=== PATIENT | female | born 1950 | race African-American/Black ===

== ENCOUNTER 2022-02-14 19:54 | Inpatient (IN) | payer MEDICARE, BC ==
[~2022-02-14] VITALS: Ht 162.6 cm; Wt 80.7 kg
[2022-02-14 21:11] VITALS: BP 142/85
--- NOTE | 2022-02-15 | NUR ---
Patient pacing on unit going room to room . Alert and confused. On admission she states she lives with her mother 88y/o and two sons 39 and 36 years old and grandchildren than another time they sons are 50 and 35 no grandchildren yet and her father lives in [place]. she never mentions her . When ask about her she says they just got in March.
--- NOTE | 2022-02-15 06:07 | NUR ---
Patient up all night pacing on the unit. Attempt to redirect patient to her room she states: "tough me one more time you'll see." Three staff members accompanied patient to her room close supervision maintained.
--- NOTE | 2022-02-15 06:44 | NUR ---
Patient in [address] very agitated did not sleep all night pacing back and forth. Call out to Dr Pham received order for zyprexa 5mg IM x one dose and Ativan 1mg IM x one dose.
[2022-02-15] MEDS ORDERED: OLANZAPINE 10 MG VIAL IM ONE (06:45)
[2022-02-15] MEDS ORDERED: LORAZEPAM 2 MG/1 ML VIAL IM ONE (06:45)
[2022-02-15 07:30] VITALS: BP 130/81
[2022-02-15] MEDS ORDERED: MAGNESIUM HYDROXIDE 30 ML LIQUID UDC PO PRN (08:15)
[2022-02-15] MEDS ORDERED: LORAZEPAM 1 MG TABLET PO PRN (08:15)
[2022-02-15] MEDS ORDERED: BLOOD SUGAR DIAGNOSTIC 1 EACH STRIP VI ONE (08:15)
[2022-02-15] MEDS ORDERED: ACETAMINOPHEN 325 MG TABLET PO PRN (08:15)
[2022-02-15] MEDS ORDERED: MAG HYDROX/AL HYDROX/SIMETH 30 ML LIQUID UDC PO PRN (08:15)
[2022-02-15] MEDS ORDERED: ZOLPIDEM 5 MG TABLET PO PRN (08:15)
--- NOTE | 2022-02-15 09:00 | NUR ---
Firearms Report: Senior [employer] completed and submitted a [employer] firearms report for 5150 grave disability certifications. A copy of report has been placed in patient chart.
--- NOTE | 2022-02-15 11:58 | NUR ---
DOUG Initial Discharge Note: Pt currently resides at home with her spouse at [address] [place] [address] ([phone]). DOUG called and spoke with pt's spouse, Alexys Tavarez, to discuss treatment plan and discharge plan. DOUG will continue to work [facility] pt, family, and MD to ensure a safe and proper discharge plan.
--- NOTE | 2022-02-15 11:58 | NUR ---
SW Family Contact: SW called and spoke with pt's spouse, Alexys Tavarez, to discuss treatment plan and discharge plan. Pt's spouse provided collateral info (see SW assessment).
[2022-02-15] MEDS ORDERED: ATOR20TA PO (13:24)
[2022-02-15] MEDS ORDERED: AMLO10TA4 PO (13:24)
[2022-02-15] MEDS ORDERED: MONT10TA33 PO (13:27)
[2022-02-15] MEDS ORDERED: ALBU8.5H8 IH (13:39)
[2022-02-15] MEDS ORDERED: POTA10TA48 PO (13:46)
[2022-02-15] MEDS ORDERED: RAME8TAB24 PO (13:47)
[2022-02-15] MEDS ORDERED: VILA10TA PO (13:49)
[2022-02-15] MEDS ORDERED: ALPR2TAB7 PO (13:50)
[2022-02-15] MEDS ORDERED: FLUT1BLS6 IH (14:11)
[2022-02-15] MEDS ORDERED: RISP1TAB97 PO (14:13)
[2022-02-15] MEDS ORDERED: ESCI10TA PO (14:15)
[2022-02-15] MEDS: risperiDONE 1 MG TABLET PO SCH (16:00)
[2022-02-15] MEDS: OXCARBAZEPINE 150 MG TABLET PO SCH (17:13)
[2022-02-15 17:17] VITALS: BP 142/84
--- NOTE | 2022-02-15 18:27 | NUR ---
Patient is confused, intrusive, not following directions, anxious, restless, paces in the hallway. A/O X 2 to person. Reassurance given. Fall and safety precautions implemented.
[2022-02-15 20:00] VITALS: BP 97/69
[2022-02-15] MEDS: CLONAZEPAM 1 MG TABLET PO SCH (20:39)
--- NOTE | 2022-02-16 06:33 | NUR ---
Patient medicated with rafat EUCEDA during shift. Slept fairly for about one hour. She remains in her room during shift no sign of agitation took all scheduled medications without difficultty.
--- NOTE | 2022-02-16 06:52 | NUR ---
Late entry for 02/13/22: Patient is admitted on unit from [facility] with present dx of psychosis. Patient has episode of visual and auditory hallucination and pass medical Hx of HTN and cardiac disorder. Patient is confused, ambulatory, continent of B&B. Respiration easy and regular skin is intact, lungs sounds are clear, no edema, bowel sounds present all four quadrants. Patient oriented to unit.
[2022-02-16 07:34] LABS: MEAN CORPUSCULAR HEMOGLOBIN 30.9 uug (24.7-32.8); MEAN CORPUSCULAR VOLUME 89.1 fL (75.5-95.3); PLATELET COUNT (AUTO) 238 K/uL (179-408)
[2022-02-16 07:53] VITALS: BP 144/94
[2022-02-16 07:59] LABS: BILIRUBIN,TOTAL 1.3 mg/dL (0.2-1.0); CREATININE 1.2 mg/dL (0.6-1.3); POTASSIUM 3.4 mmol/L (3.5-5.1); TOTAL PROTEIN, SERUM 7.8 g/dL (6.4-8.2)
[2022-02-16] MEDS ORDERED: ALBUTEROL SULFATE 2.5 MG/3 ML NEBU NEB PRN (08:45)
[2022-02-16] MEDS: risperiDONE 1 MG TABLET PO SCH ×2 (08:53→16:53)
[2022-02-16] MEDS: OXCARBAZEPINE 150 MG TABLET PO SCH ×2 (08:53→16:53)
[2022-02-16] MEDS: AMLODIPINE 10 MG TABLET PO SCH (08:54)
[2022-02-16] MEDS ORDERED: POTASSIUM CHLORIDE 20 MEQ TAB.PRT.SR PO ONE (10:00)
--- NOTE | 2022-02-16 10:38 | NUR ---
Pt received lying in bed resting comfortably. No aggressive or combative behaviors noted at this time. Admits to hallucinations but does not disclose what. Isolative and withdrawn. Compliant with all medications and care.
[2022-02-16 16:15] VITALS: BP 121/84
[2022-02-16] MEDS: CLONAZEPAM 1 MG TABLET PO SCH (21:00)
[2022-02-16] MEDS: ATORVASTATIN 20 MG TABLET PO SCH (21:00)
[2022-02-16] MEDS: MONTELUKAST SODIUM 10 MG TABLET PO SCH (21:00)
[2022-02-17 07:48] VITALS: BP 118/74
[2022-02-17 08:09] LABS: POTASSIUM 3.5 mmol/L (3.5-5.1)
[2022-02-17] MEDS: OXCARBAZEPINE 150 MG TABLET PO SCH ×2 (08:28→16:39)
[2022-02-17] MEDS: risperiDONE 1 MG TABLET PO SCH ×2 (08:28→16:39)
[2022-02-17] MEDS: AMLODIPINE 10 MG TABLET PO SCH (08:28)
--- NOTE | 2022-02-17 14:13 | NUR ---
Received patient in her room isolative withdrawn no interaction with peers.compliant with all medication. encouraged to attend and participated in group activity.patient is confused and forgetful at time . denies any AH/VH ,will continue close monitoring.
[2022-02-17 16:07] VITALS: BP 109/60
[2022-02-17 19:53] VITALS: BP 119/61
[2022-02-17] MEDS: ATORVASTATIN 20 MG TABLET PO SCH (20:26)
[2022-02-17] MEDS: CLONAZEPAM 1 MG TABLET PO SCH (20:26)
[2022-02-17] MEDS: MONTELUKAST SODIUM 10 MG TABLET PO SCH (20:26)
--- NOTE | 2022-02-17 20:35 | NUR ---
Received patient in her room ion bed. She is noted awake A/O x 3 She is calm and pleasant upon approached. she is able to verbalized her feelings. patient stated, "I am here because I hear voices and i see things but i am getting better". patient denied SI and HI. she is able to verbally CFS. Patient is reassured for her safety. safety and fall precautions are in place. she was given PO fluids and snacks. V/S are stable. will continue to monitor.
[2022-02-18 07:43] VITALS: BP 111/64
[2022-02-18] MEDS: AMLODIPINE 10 MG TABLET PO SCH (08:18)
[2022-02-18] MEDS: OXCARBAZEPINE 150 MG TABLET PO SCH (08:19)
[2022-02-18] MEDS: risperiDONE 1 MG TABLET PO SCH ×2 (08:19→17:20)
[2022-02-18 15:57] VITALS: BP 117/60
[2022-02-18] MEDS: OXCARBAZEPINE 300 MG TABLET PO SCH (17:20)
[2022-02-18 20:00] VITALS: BP 106/55
[2022-02-18] MEDS: MONTELUKAST SODIUM 10 MG TABLET PO SCH (20:25)
[2022-02-18] MEDS: CLONAZEPAM 1 MG TABLET PO SCH (20:25)
[2022-02-18] MEDS: ATORVASTATIN 20 MG TABLET PO SCH (20:25)
--- NOTE | 2022-02-18 21:22 | NUR ---
Received patient in her room in bed. She is noted awake A/O x 3. she is calm, cooperative and pleasant upon approached. She is able to verbalized her feelings.. She continue Isolative in her room. However, she denied SI. she also stated that she is not experiencing any more visual or auditory hallucinations. she stated, "I know now why i has hearing voices. I was taking the wrong medication. I am now taking the right medication and i feel better". Patient is goal oriented but appears to minimized her symptoms. Her V/S are stable. she is i no distress. She was given PO fluids and snacks. SHe is reassured for her safety. safety and fall precautions are in place. will continue to monitor.
[2022-02-19 07:30] VITALS: BP 132/82
[2022-02-19] MEDS: OXCARBAZEPINE 300 MG TABLET PO SCH ×2 (08:27→17:00)
[2022-02-19] MEDS: risperiDONE 1 MG TABLET PO SCH ×2 (08:27→17:00)
[2022-02-19] MEDS: AMLODIPINE 10 MG TABLET PO SCH (08:29)
--- NOTE | 2022-02-19 14:47 | NUR ---
Patient is isolative, withdrawn, cooperative with nursing care, and compliant with medications. Pt. is A/O X 3 to person, place. Pt. is not engaging in group activities or conversations. Reassurance given. Fall and safety precautions implemented.
--- NOTE | 2022-02-19 15:12 | NUR ---
DOUG Discharge Update: DOUG called Dr. Way ([phone]) and spoke with Divya and scheduled follow-up appointment on 03/14/22 at 11:20am at [address] [place] [address], [address], [place] [address]. Divya states she will talk to Dr. Way to reschedule for earlier appt if her schedule permits.
[2022-02-19 16:38] VITALS: BP 104/65
[2022-02-19 19:51] VITALS: BP 122/67
[2022-02-19] MEDS: CLONAZEPAM 1 MG TABLET PO SCH (20:26)
[2022-02-19] MEDS: ATORVASTATIN 20 MG TABLET PO SCH (20:26)
[2022-02-19] MEDS: MONTELUKAST SODIUM 10 MG TABLET PO SCH (20:26)
--- NOTE | 2022-02-20 07:08 | NUR ---
PATIENT SLEPT FOR APPROX 8 HRS THROUGH THE NIGHT. SHE CONTINUE ISOLATIVE AND WITHDRAWN. SHE DENIED SI/HI//AH. WILL CONTINUE TO MONITOR.
[2022-02-20 07:30] VITALS: BP 113/68
[2022-02-20] MEDS: risperiDONE 1 MG TABLET PO SCH ×2 (08:26→17:20)
[2022-02-20] MEDS: AMLODIPINE 10 MG TABLET PO SCH (08:27)
[2022-02-20] MEDS: OXCARBAZEPINE 300 MG TABLET PO SCH ×2 (08:27→17:20)
--- NOTE | 2022-02-20 12:53 | NUR ---
DOUG Family Contact: SW spoke with pt's Alexys Tavarez ([phone]) and provided discharge plan updates. Pt's verbalized understanding and is in agreement with discharge plan.
--- NOTE | 2022-02-20 15:19 | NUR ---
Patient is withdrawn, isolative, not engage in activities or conversations, compliant with medications, cooperative with nursing care. A/O X 3 to person, place. Pt. is encourage to verbalize concerns. Fall and safety precautions implemented.
[2022-02-20 17:06] VITALS: BP 112/73
[2022-02-20 19:50] VITALS: BP 127/85
[2022-02-20] MEDS: CLONAZEPAM 1 MG TABLET PO SCH (20:04)
[2022-02-20] MEDS: ATORVASTATIN 20 MG TABLET PO SCH (20:05)
[2022-02-20] MEDS: MONTELUKAST SODIUM 10 MG TABLET PO SCH (20:05)
[2022-02-21] MEDS: AMLODIPINE 10 MG TABLET PO SCH (08:15)
[2022-02-21] MEDS: OXCARBAZEPINE 300 MG TABLET PO SCH ×2 (08:15→17:05)
[2022-02-21] MEDS: risperiDONE 1 MG TABLET PO SCH ×2 (08:15→17:05)
[2022-02-21 08:30] VITALS: BP 118/70
--- NOTE | 2022-02-21 09:45 | NUR ---
Patient had court hearing today, and the enforcement manager gave GD probable cause only.
--- NOTE | 2022-02-21 10:50 | NUR ---
DOUG Discharge Update: DOUG called Dr. Flako Villagomez's office [id number] [facility], [address], [place] [address] ([phone]) and spoke with Susan and scheduled post-discharge appt on 02/26/22 at 10am. Pt has been made aware and verbalized understanding.
--- NOTE | 2022-02-21 11:23 | NUR ---
DOUG PC Hearing: Patient had 5250 probable cause hearing today and it was upheld for grave disability.
--- NOTE | 2022-02-21 15:45 | NUR ---
Patient is compliant with medications, cooperative with nursing care, engage in group activities today. Patient had breathing treatment. Pt. is encourage to verbalize feelings and emotions. Fall and safety precautions implemented.
[2022-02-21 16:31] VITALS: BP 117/60
[2022-02-21] MEDS: MONTELUKAST SODIUM 10 MG TABLET PO SCH (20:04)
[2022-02-21] MEDS: CLONAZEPAM 1 MG TABLET PO SCH (20:04)
[2022-02-21 20:34] VITALS: BP 102/61
--- NOTE | 2022-02-21 20:46 | NUR ---
GPS: Pt. remains compliant with her meds.and plan of care so far. Denies AH/VH. Safe environment provided. Needs attended. Will continue to monitor.
[2022-02-22 07:30] VITALS: BP 144/91
[2022-02-22 08:28] VITALS: BP 144/91
[2022-02-22] MEDS: AMLODIPINE 10 MG TABLET PO SCH (08:28)
[2022-02-22] MEDS: OXCARBAZEPINE 300 MG TABLET PO SCH (08:28)
[2022-02-22] MEDS: risperiDONE 1 MG TABLET PO SCH (08:28)
--- NOTE | 2022-02-22 09:03 | NUR ---
DOUG Final Discharge Note: Pt will be discharged to home [address], [place] [address] via pts , Alexys Tavarez ([phone]), via private transportation at 1PM. DOUG spoke with Alexys who states he is ready to accept the patient today. Pt is aware and agreeable with discharge plan. Pt is alert and oriented x3, is unable to plan for self-care at this time. However, pt is willing to accept care at home from her . Pt denies any suicidal or homicidal ideation. Pt will follow-up with Psychiatrist, Dr. Way ([phone]) on 03/14/22 at 11:20am at [address] [facility], [address], [place] [address]. Alexys is aware and agreeable with this [facility] psychiatrist appointment. Pt will follow-up with her outpatient Visiting Teacher, Dr. Shemar Villagomez [address] [facility], [address], [place] [address] ([phone]) on 02/26/22 at 10am . Pt presents with calm mood and congruent affect. PHARMACY: [facility] [address] [place] [address] ([phone]).
--- NOTE | 2022-02-22 13:20 | NUR ---
Received orders to discharge this patient to home [address] [place] [address] via pts , Alexys Tavarez ([phone]), via private transportation at 1PM. Patient was agreeable with discharge plans, and signed all discharge documents. All belongings were returned to patient. Medical prescriptions were sent to patient's preferable pharmacy, and psych prescriptions were given to patient. Pt. denies SI/HI AH/VH, SOB, pain or any discomfort. Emotional support provided. Fall and safety precautions implemented.
== END 2022-02-22 13:15 | disposition home or self-care (01) | DRG 885 ==
LOC: GPS 19:54
PROVIDERS: ADMIT Psychiatry & Neurology Psychiatry; ATTEND Internal Medicine
DX: F31.2 Bipolar disorder, current episode manic severe with psychotic features (principal); J44.9 Chronic obstructive pulmonary disease, unspecified; E66.9 Obesity, unspecified; E78.5 Hyperlipidemia, unspecified; E87.6 Hypokalemia; F41.9 Anxiety disorder, unspecified; F29 Unspecified psychosis not due to a substance or known physiological condition; Z73.6 Limitation of activities due to disability; M62.81 Muscle weakness (generalized); Z68.30 Body mass index [BMI] 30.0-30.9, adult; R74.01 Elevation of levels of liver transaminase levels; R26.81 Unsteadiness on feet; I10 Essential (primary) hypertension
CPT/HCPCS: 36415; 85025; 93005; 94664; J2060; J2358